=== PATIENT | female | born 2000 | race Caucasian/White ===

== ENCOUNTER 2021-11-23 13:24 | Outpatient (CLI) | payer OTHER, SELFPAY ==
[2021-11-23 15:13] LABS: SARS-CoV-2 RNA PCR Positive (Negative)
== END 2021-11-23 13:25 | disposition home or self-care (01) ==
PROVIDERS: PCP Physician Assistant; Visit Provider Physician Assistant
DX: U07.1 COVID-19 (principal)
CPT/HCPCS: C9803; U0003; U0005